=== PATIENT | female | born 1960 | race Caucasian/White ===

== ENCOUNTER 2016-12-21 16:00 | Observation (INO) | payer OTHER ==
[2016-12-21] MEDS ORDERED: DIAZEPAM 5 MG TAB PO ONE (16:07)
[2016-12-21] MEDS ORDERED: ASPIRIN EC 325 MG TAB PO ONE ×2 (16:07→16:24)
[2016-12-21] MEDS ORDERED: FAMOTIDINE 20 MG TAB PO ONE (16:07)
[2016-12-21] MEDS ORDERED: diphenhydrAMINE 25 MG CAP PO ONE ×2 (16:07→16:24)
[2016-12-21] MEDS ORDERED: NS 1,000 ML IV ONE (16:07)
[2016-12-21] MEDS ORDERED: fentaNYL 100 MCG/2 ML INJ ONE (16:21)
[2016-12-21] MEDS ORDERED: LIDOCAINE 1% 300 MG/30 ML SDV ONE (16:21)
--- NOTE | 2016-12-21 16:21 | CPEKG ---
Heart Rate: 74 RR Interval: 811 P-R Interval: 144 QRSD Interval: 96 QT Interval: 380 QTC Interval: 422 P Mcallen: 43 QRS Mcallen: 6 T Wave Mcallen: -14 EKG Severity - BORDERLINE ECG - EKG Impression: SINUS RHYTHM EKG Impression: BORDERLINE T ABNORMALITIES, INFERIOR- INFEROLATERAL LEADS Electronically Signed By: Randal Guerrero 21-Dec-2016 18:53:07
[2016-12-21] MEDS ORDERED: MIDAZOLAM 2 MG/2 ML VIAL ONE (16:22)
[2016-12-21] MEDS ORDERED: IOPAMIDOL (ISOVUE-370) 150 ML BTL IV ONE (16:22)
[2016-12-21] MEDS ORDERED: VERAPAMIL 5 MG/2 ML VIAL ONE (16:22)
[2016-12-21] MEDS ORDERED: HEPARIN 10,000 UNIT/10 ML MDV ONE (16:22)
[2016-12-21] MEDS ORDERED: DIAZEPAM 5 MG TAB ONE (16:24)
[2016-12-21] MEDS ORDERED: FAMOTIDINE 20 MG TAB ONE (16:24)
[2016-12-21 16:36] LABS: % IMMATURE GRANULYOCYTES 0.2 % (0.0-1.1); ABSOLUTE IMMATURE GRANULOCYTES 0.01 10^3/uL (0.00-0.10); ADD DIFF? NO; ADD MORPH? NO; ADD SCAN? NO; ATYPICAL LYMPHOCYTE FLAG 10 (0-99); FRAGMENT RBC FLAG 0 (0-99); HEMATOCRIT 39.6 % (38.0-47.0); HEMOGLOBIN 13.9 g/dL (12.6-16.3); LEFT SHIFT FLG 0 (0-99); LIPEMIA HEMOLYSIS FLAG 90 (0-99); MEAN CELL HEMOGLOBIN 32.5 pg (27.9-34.1); MEAN CELL HEMOGLOBIN CONCENTR. 35.1 g/dL (32.4-36.7); MEAN CELL VOLUME 92.5 fL (81.5-99.8); MEAN PLATELET VOLUME 10.3 fL (8.7-11.7); PLATELET CLUMPS FLAG 20 (0-99); PLATELET COUNT 192 10^3/uL (150-400); RED BLOOD CELL COUNT 4.28 10^6/uL (4.18-5.33); RED CELL DISTRIBUTION WIDTH 12.4 % (11.5-15.2)
[2016-12-21 16:44] LABS: PROTIME(PATIENT) 13.1 SEC (12.0-15.0)
[2016-12-21 16:45] LABS: ANION GAP 10 mEq/L (8-16); CALCIUM 9.3 mg/dL (8.5-10.4); CARBON DIOXIDE 25 mEq/l (22-31); CHLORIDE 103 mEq/L (97-110); CHOLESTEROL 246 mg/dL (140-220); CHOLESTEROL/HDL RATIO 3.97 RATIO (1.00-4.44); GLOMERULAR FILTRATION RATE 57; GLUCOSE 97 mg/dL (70-100); HIGH DENSITY LIPOPROTEIN 62 mg/dL (40-85); LOW DENSITY LIPOPROTEIN 124 mg/dL (80-100); MAGNESIUM 1.7 mg/dL (1.6-2.3); NON-HIGH DENSITY LIPOPROTEIN 184 mg/dL (90-129); POTASSIUM 3.4 mEq/L (3.5-5.2); SODIUM 138 mEq/L (134-144); TRIGLYCERIDE 300 mg/dL (35-135); VERY LOW DENSITY LIPOPROTEINS 60 mg/dL (8-25)
[2016-12-21] MEDS ORDERED: ATROPINE SULFATE 1 MG/10 ML SYR IVP PRN (17:10)
[2016-12-21] MEDS ORDERED: NITROGLYCERIN 0.4 MG BTL SL PRN (17:10)
[2016-12-21] MEDS ORDERED: ONDANSETRON 4 MG/2 ML VIAL IVP PRN (17:10)
--- NOTE | 2016-12-21 17:13 | PDDXCAT ---
Diagnostic Cath Note - . Date: 12/21/16 [employer] Attendant: Osvaldo Indication: CCC Class III and IV angina on medical treatment - Procedure Access: left wrist Procedure: left heart catheterization, coronary angiography, left ventriculogram - Materials Left Heart Cath size: 4F Left Heart Cath materials: JL3.5, JR4.0, pigtail - Findings-Left Heart Catheterization LM: Normal LAD: Normal LCX: Normal RCA: Dominant: Normal EDP: 20 mm of mercury LVEF: 65 Wall motion: Normal Complications: None Estimated blood loss: <50ml Closure method: TR Band Assessment: 1. Angiographically normal coronary arteries. 2. Normal LV systolic function. Plan: Primary prevention clinical follow-up Patient Problems: Problems Problem Status Onset Abdominal pain Acute
[2016-12-21 19:21] VITALS: BP 132/89; PULSE 72; RESP 20; TEMP 97.5; O2SAT 97
== END 2016-12-21 21:20 | disposition home or self-care (01) ==
LOC: FCATH 16:00 → F2W 16:45
PROVIDERS: ADMIT Internal Medicine Interventional Cardiology; ATTEND Internal Medicine Interventional Cardiology
PROC: 4A023N7 Measurement of Cardiac Sampling and Pressure, Left Heart, Percutaneous Approach (ICD-10-PCS; principal; 2016-12-21)
PROC: B2151ZZ Fluoroscopy of Left Heart using Low Osmolar Contrast (ICD-10-PCS; principal; 2016-12-21)
PROC: B2111ZZ Fluoroscopy of Multiple Coronary Arteries using Low Osmolar Contrast (ICD-10-PCS; principal; 2016-12-21)
DX: R07.9 Chest pain, unspecified (principal); K21.9 Gastro-esophageal reflux disease without esophagitis; I10 Essential (primary) hypertension; M79.7 Fibromyalgia; Z96.653 Presence of artificial knee joint, bilateral; Z87.891 Personal history of nicotine dependence
CPT/HCPCS: 93005; 93458; C1769; J1644; J2250; J3010; Q9967

== ENCOUNTER → 2017-01-06 | Outpatient (CLI) | payer OTHER | LOC: BMCIMAGING 13:03 | PROVIDERS: ATTEND Obstetrics & Gynecology Gynecology | DX: Z12.31 Encounter for screening mammogram for malignant neoplasm of breast (principal) | CPT/HCPCS: G0202 ==

== ENCOUNTER → 2018-01-27 | Outpatient (CLI) | payer OTHER | LOC: BMCIMAGING 09:27 | PROVIDERS: ATTEND Obstetrics & Gynecology Gynecology | DX: Z12.31 Encounter for screening mammogram for malignant neoplasm of breast (principal) ==

== ENCOUNTER → 2018-06-29 | Outpatient (CLI) | payer OTHER | LOC: FCPNEURO 21:00 | PROVIDERS: ATTEND Student in an Organized Health Care Education/Training Program | DX: G47.33 Obstructive sleep apnea (adult) (pediatric) (principal) ==